=== PATIENT | male | born 1970 | race Caucasian/White ===

== ENCOUNTER 2025-02-13 11:40 | Outpatient (CLI) | payer OTHER, SELFPAY ==
--- NOTE | ~2025-02-13 | XR_ITS ---
EXAMINATION: XR shoulder RT min 2V, 02/13/2025 12:10 CDT HISTORY: RIGHT HAND WEAKNESS;CHRONIC R SHOULDER PAIN COMPARISON: No comparisons available. Findings: No acute fracture or malalignment. No significant degenerative changes. Soft tissues unremarkable. Impression: No acute fracture or malalignment. Reviewed, dictated and finalized at location A. Impression: No acute fracture or malalignment.
--- NOTE | ~2025-02-13 | XR_ITS ---
EXAMINATION: XR hand RT min 3V DATE: 02/13/2025 12:16 INDICATION: Right hand weakness. Pain TECHNIQUE: 4 images of the right wrist were obtained. COMPARISON: None. FINDINGS: Bone mineralization is within normal limits. No fracture. No dislocation. Moderate joint space narrowing with osteophytosis in the first carpometacarpal joint, first metacarpophalangeal joint, interphalangeal joint of the thumb, second, third and fifth PIP joints and second, third, fourth and fifth DIP joints. Soft tissue swelling about the right hand. IMPRESSION: 1. No fracture. No dislocation. 2. Moderate joint space narrowing with osteophytosis in the first carpometacarpal joint, first metacarpophalangeal joint, interphalangeal joint of the thumb, second, third and fifth PIP joints and second, third, fourth and fifth DIP joints. 3. Soft tissue swelling about the right hand. Reviewed, dictated and finalized at location Q. IMPRESSION: 1. No fracture. No dislocation. 2. Moderate joint space narrowing with osteophytosis in the first carpometacarp al joint, first metacarpophalangeal joint, interphalangeal joint of the thumb, second, third and fifth PIP joints and second, third, fourth and fifth DIP join ts. 3. Soft tissue swelling about the right hand.
--- OUTSIDE RECORDS SUMMARY | 2025-02-13 11:58 | XMS_ITS | Clinical Summary ---
Author Organization [facility] Address [address] [place] [address] Care Team Providers Care Ancient Art Curator Name Role Phone Unavailable Primary Care Provider Unavailabl e Source Comments [facility],non-owned Affiliates and Associated Physician Practices is amultiple site organization consisting of ambulatory clinics and hospital sitesin [place], [place], [place] and [place]. This disclosure is being madepursuant to the Care Everywhere program and may not contain all information available regarding this patient. 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 Gender Identity Not on file Sexual Orientation Not on file Plan of Treatment Health Maintenance Due Date Last Done Comments COLOGUARD (AGES 45-75) - COL ON CA SCREENING 1971 COLON MONITORING 1971 COLONOSCOPY - COLON CA SCREENING 1971 CT COLONOGRAPHY - COLON CA SCREENING 1971 Colorectal Cancer Screening 1971 FIT - COLON CA SCREENING 1971 FLEX SIG - COLON CA SCREENING 1971 LIPID TESTING 1971 HIV SCREENING 1986 HEPATITIS C SCREENING 04/13/1989 DTAP/TDAP/TD VACCINES (1 - Tdap) 1990 HEPATITIS B VACCINE (1 of 3 - 19+ 3-dose series) 1990 PNEUMOCOCCAL VACCINE 50+ (1 of 1 - PCV) 2021 ZOSTER VACCINE (1 of 2) 2021 COVID-19 VACCINE (1 - 2023-2 5 season) 2024 DEPRESSION SCREENING 06/21/2024 INFLUENZA VACCINE (#1) 2025 HIB VACCINE Aged Out No longer eligi ble based on patient's age to complete this topic HPV VACCINE Aged Out No longer eligi ble based on patient's age to complete this topic MENINGOCOCCAL (Group B) VACC INE SHARED DECISION-MAKING Aged Out No longer eligibl e based on patient's age to complete this topic MENINGOCOCCAL GROUPS A/C/Y/W VACCINE Aged Out No longer eligible b ased on patient's age to complete this topic
--- OUTSIDE RECORDS SUMMARY | 2025-02-13 11:58 | XMS_ITS | Patient Health Record ---
Author Organization [facility] Address [address] [place] [address] [place] [address] Care Team Providers Care Nurse Care Manager Name Role Phone Bobby Vasquez MD Primary Care Provider Unavail able Lester Franco Unavailable [phone] Allergies No Known Allergies Reason For Referral Referral Organization [facility] Referring Provider First Name Lester Referring Provider Last Name Salvador Referring Provider Speciality Gastroente rology Referred Organization [facility] Referred Provider Lester Franco Referred Address [address] [place] [address],[place],[address], Referred Provider Specialty Gastroentero logy Referral Priority Routine Medications Medication SIG (Take, Route, Frequency, Duration) Notes Start Date End Date Status Entresto Active Eliquis Active Furosemide Active Metoprolol Tartrate Active methIMAzole Active PEG-3350/Electrolytes 236 GM ML Orally twice a day, Follow Physician Instructions. 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 is with him on today's date Vital Signs Height 70 in 11/07/2024 Weight 279 lbs 11/07/2024 BMI 40.03 kg/m2 11/07/2024 Procedures Procedure Date Ordered Date Performed Result Body Sit e Colonoscopy 11/07/2024 N/A Surgical Pathology 12/01/2024 11/29/2024 N/A Encounters Encounter Location Date Provider Diagnosis [facility], [address] [place] [address] 11/07/2024 Lester Franco Colon cancer screening Z12.11 ; Family history of malignant neoplasm of digestive organs Z80.0 and Rectal bleeding K62.[address] [place] [address] 11/29/2024 Lester Franco Colon cancer screening Z12.11 ; Family history of colon polyps, unspecified Z83.719 ; Benign neoplasm of cecum D12.0 and Benign neoplasm of transverse colon D12.3 [facility], [address] [place] [address] 11/07/2024 Lester Franco [facility], [address] [place] [address] 11/08/2024 Lester Franco [facility], [address] [place] [address] 11/08/2024 Lester Franco [facility], [address] [place] [address] 11/08/2024 Lester Franco Assessments Encounter Date Diagnosis (ICD Code) Assessment Notes Treatment Notes Treatment Clinical Notes Section Notes 11/07/2024 Family history of malignant neoplasm of digestive organs (ICD-10 - Z80.0) COLON CANCER SCREENING, FAMILY HISTORY OF COLON POLYPS/CANCER, RECTAL BLEEDING-ramon edwards is a very pleasant 54-year-old gentleman with a rather extensive past medical history. He is currently being treated by a side stitcher for atrial fibrillation and congestive heart failure. Probable underlying obstructive sleep apnea with morbid obesity. On Eliquis for atrial fibrillation. Family history of colon polyps and colon cancer. I agree with his side stitcher that colon cancer screening is warranted. Options for evaluation discussed in detail with the patient. He is certainly at high risk for colonoscopy and sedation for same. Any/all of his procedures should be performed in the hospital setting. He is aware that he will need to hold his Eliquis for at least 3 days prior to any planned GI procedures. We will prepare his bowel with GoLytely given his history of congestive heart failure. Risks and benefits of colonoscopy were discussed in detail with the patient and his . Their questions were answered. Furthermore, I asked him to get clearance from his side stitcher to hold his Eliquis and proceed with colonoscopy as planned. 11/07/2024 Colon cancer screening (ICD-10 - Z12.11) 1. Patient will get clearance from his side stitcher for performance of colonoscopy and permission to hold his Eliquis for at least 3 days prior to planned colon exam.2. Given his history of congestive heart failure requiring Entresto and Lasix, his exam will be performed in the hospital setting only.3. We will prepare his bowel with GoLytely. Preparation for colonoscopy discussed in detail and questions answered.4. We will proceed with colonoscopy in the near timeframe. I have discussed alternatives, benefits and potential risks. Risks include but are not limited to , bleeding, infection, pain, perforation requiring urgent surgical repair, adverse medication reaction, missed pathology, aspiration, arrhythmia and others. Patient voiced clear understanding and desire to proceed.5. Further thoughts to follow. Thank you kindly for allow me to see this very pleasant but very ill gentleman. Please feel free to call if you have questions or concerns. COLON CANCER SCREENING, FAMILY HISTORY OF COLON POLYPS/CANCER, RECTAL BLEEDING-ramon edwards is a very pleasant 54-year-old gentleman with a rather extensive past medical history. He is currently being treated by a side stitcher for atrial fibrillation and congestive heart failure. Probable underlying obstructive sleep apnea with morbid obesity. On Eliquis for atrial fibrillation. Family history of colon polyps and colon cancer. I agree with his side stitcher that colon cancer screening is warranted. Options for evaluation discussed in detail with the patient. He is certainly at high risk for colonoscopy and sedation for same. Any/all of his procedures should be performed in the hospital setting. He is aware that he will need to hold his Eliquis for at least 3 days prior to any planned GI procedures. We will prepare his bowel with GoLytely given his history of congestive heart failure. Risks and benefits of colonoscopy were discussed in detail with the patient and his . Their questions were answered. Furthermore, I asked him to get clearance from his side stitcher to hold his Eliquis and proceed with colonoscopy as planned. 11/29/2024 Colon cancer screening (ICD-10 - Z12.11) 11/29/2024 Family history of colon polyps, unspecified (ICD-10 - Z83.719) 11/29/2024 Benign neoplasm of cecum (ICD-10 - D12.0) 11/07/2024 Rectal bleeding (ICD-10 - K62.5) COLON CANCER SCREENING, FAMILY HISTORY OF COLON POLYPS/CANCER, RECTAL BLEEDING-ramon edwards is a very pleasant 54-year-old gentleman with a rather extensive past medical history. He is currently being treated by a side stitcher for atrial fibrillation and congestive heart failure. Probable underlying obstructive sleep apnea with morbid obesity. On Eliquis for atrial fibrillation. Family history of colon polyps and colon cancer. I agree with his side stitcher that colon cancer screening is warranted. Options for evaluation discussed in detail with the patient. He is certainly at high risk for colonoscopy and sedation for same. Any/all of his procedures should be performed in the hospital setting. He is aware that he will need to hold his Eliquis for at least 3 days prior to any planned GI procedures. We will prepare his bowel with GoLytely given his history of congestive heart failure. Risks and benefits of colonoscopy were discussed in detail with the patient and his . Their questions were answered. Furthermore, I asked him to get clearance from his side stitcher to hold his Eliquis and proceed with colonoscopy as planned. 11/29/2024 Benign neoplasm of transverse colon (ICD-10 - D12.3) Plan Of Treatment Pending Test Test Name Order Date Colonoscopy 11/07/2024 Insurance Providers Payer Name Payer Address Payer Phone Subscriber Number Group Number Insured Name Patient Relationship to Insured Coverage Start Date Coverage End Date [facility] [address] [place] [address] [phone] [id number] Zev Martin Self - patient is the insured Medical (General) History Medical History History ICD Code Atrial fibrillation Chronic anticoagulation with Eliquis Congestive heart failure Obstructive sleep apnea Morbid obesity Hyperthyroidism Hypertension
--- OUTSIDE RECORDS SUMMARY | 2025-02-13 11:58 | XMS_ITS | Clinical Summary ---
Author Organization [facility] Address [address] [place] [address] Care Team Providers Care Pulmonary Physician Name Role Phone Unavailable Primary Care Provider Unavailabl e Encounters Date Type Department Care Team Description 12/12/2024 External Device Data [facility] ABSTRACTION Provider, Abstract from Last 3 Months Social History Tobacco Use Types Packs/Day Years Used Date Smoking Tobacco: Never Assessed Sex and Gender Information Value Date Recorded Sex Assigned at Not on file Legal Sex Male 5:12 PM CDT Gender Identity Not on file Sexual Orientation Not on file Plan of Treatment Health Maintenance Due Date Last Done Comments Pre-Diabetes and Diabetes Screening 1971 DTAP/TDAP/TD VACCINES (1 - Tdap) 1990 HEPATITIS B VACCINES (1 of 3 - 19+ 3-dose series) 03/22 COLORECTAL SCREENING 2016 Colorectal Cancer Screening 2016 FIT-DNA Q 3 years 2016 FIT/FOBT Q 1 year 2016 Flex Sig/CT Colonography Q 5 years 2016 ZOSTER VACCINE (1 of 2) 2021 INFLUENZA VACCINE (#1) [address] [facility] INDIVIDUAL EXCHANGE [id number]
== END 2025-02-13 11:41 | disposition home or self-care (01) ==
LOC: ANHIMG 11:45
PROVIDERS: PCP Internal Medicine Infectious Disease; Visit Provider Internal Medicine Infectious Disease
DX: R29.898 Other symptoms and signs involving the musculoskeletal system (principal); G89.29 Other chronic pain; M25.741 Osteophyte, right hand; R22.31 Localized swelling, mass and lump, right upper limb
CPT/HCPCS: 73030; 73130